=== PATIENT | female | born 1950 | race African-American/Black ===

== ENCOUNTER 2024-06-21 01:44 | Inpatient (IN) | payer OTHER, MEDICAID, MEDICARE ==
[~2024-06-21] VITALS: Ht 172.7 cm; Wt 54.9 kg
[2024-06-21] MEDS: LEVETIRACETAM 1000MG PREMIX 100 ML IV ONE (02:28)
[2024-06-21] MEDS ORDERED: IPRATROPIUM/ALBUTEROL 0.5-3(2.5)MG/3ML NEB HHN PRN (04:30)
[2024-06-21] MEDS ORDERED: ACETAMINOPHEN 325MG TABLET PO PRN (04:30)
[2024-06-21] MEDS ORDERED: ONDANSETRON HCL 4MG/2ML INJ IV PRN (04:30)
[2024-06-21] MEDS ORDERED: GUAIFENESIN 200MG/10ML SUGAR FREE UDC PO PRN (04:30)
[2024-06-21] MEDS ORDERED: MAGNESIUM/ALUMINUM HYDROXIDE/SIMETHICONE 30ML UDC PO PRN (04:30)
[2024-06-21] MEDS ORDERED: DEXTROSE 50% WATER 50ML SYRINGE IV PRN (04:30)
[2024-06-21] MEDS ORDERED: DOCUSATE SODIUM 100MG CAPSULE PO PRN (04:30)
[2024-06-21] MEDS ORDERED: CLONIDINE 0.1MG TABLET PO PRN (04:30)
[2024-06-21 04:59] LABS: BASOPHILS % 0.8 % (0.0-2.0); EOSINOPHILS % 1.3 % (0.0-5.0); HEMATOCRIT. 38.9 % (36.0-48.0); HEMOGLOBIN. 12.5 g/dL (12.0-16.0); LYMPHOCYTES % 26.6 % (20.0-50.0); MEAN CORPUSCULAR HEMOGLOBIN 30.2 pg (28.0-32.0); MEAN CORPUSCULAR VOLUME 94.3 fL (81.0-99.0); MEAN PLATELET VOLUME 7.7 fl (7.4-10.4); MONOCYTES % 5.3 % (2.0-8.0); PLATELET 379 x1000/uL (130-400); RED BLOOD CELL COUNT 4.13 mill/uL (4.2-5.4); RED CELL DISTRIBUTION WIDTH 13.4 % (11.6-14.6); WHITE BLOOD COUNT 13.9 x1000/uL (4.5-11.0)
[2024-06-21] MEDS ORDERED: LORAZEPAM 2MG/ML UD SYRINGE IV PRN (05:00)
[2024-06-21 05:19] LABS: CHLORIDE 110 mEq/L (98-107); POTASSIUM 3.3 mEq/L (3.5-5.1); SODIUM 149 mEq/L (136-145)
[2024-06-21 05:20] LABS: CALCIUM 10.5 mg/dL (8.7-10.4); CARBON DIOXIDE 19 mEq/L (21-32)
[2024-06-21 05:25] LABS: CREATININE 0.9 mg/dL (0.6-1.0); GLUCOSE 139 mg/dL (70-105); UREA NITROGEN BLOOD 10 mg/dL (9-23)
[2024-06-21] MEDS: MAGNESIUM 2 G PREMIX 50 ML IV NR (05:26)
[2024-06-21 05:27] LABS: CREATINE KINASE 100 IU/L (34-145); PHOSPHORUS 2.6 mg/dL (2.5-4.9)
[2024-06-21 05:29] LABS: THYROID STIMULATING HORMONE 2.65 uIU/mL (0.55-4.78)
[2024-06-21 06:50] VITALS: BP 148/66; PULSE 87; RESP 16; TEMP 36.5
[2024-06-21 07:00] VITALS: BP 148/66; PULSE 87; RESP 16; TEMP 36.5; O2SAT 100
[2024-06-21 08:00] VITALS: BP 149/85; PULSE 91; RESP 16; TEMP 36.8; O2SAT 97
[2024-06-21] MEDS: LEVETIRACETAM 1000MG PREMIX 100 ML IV SCH (08:38)
[2024-06-21] MEDS: PANTOPRAZOLE SODIUM 40 MG/VIAL IV SCH (08:38)
[2024-06-21] MEDS: LISINOPRIL 10MG TABLET PO SCH (08:55)
[2024-06-21] MEDS ORDERED: LEVETIRACETAM 1,000MG in NACL 100ML PREMIX IV SCH (09:00)
[2024-06-21] MEDS ORDERED: LEVETIRACETAM 500MG TABLET PO SCH (09:00)
[2024-06-21] MEDS: DEXTROSE 5% WATER 1,000 ML IV SCH (10:38)
[2024-06-21 12:00] VITALS: BP 148/66; PULSE 94; RESP 17; TEMP 36.7; O2SAT 99
[2024-06-21 16:00] VITALS: BP 149/84; PULSE 96; RESP 16; TEMP 36.8; O2SAT 98
[2024-06-21] MEDS ORDERED: HYDROCODONE/ACETAMINOPHEN 5/325MG TABLET PO PRN (16:30)
[2024-06-21] MEDS ORDERED: NALOXONE HCL 0.4MG/ML VIAL IV PRN (16:45)
[2024-06-21 20:00] VITALS: BP 140/80; PULSE 98; RESP 17; TEMP 37.1; O2SAT 100
[2024-06-21] MEDS: TRAZODONE HCL 50MG TABLET PO SCH (22:12)
[2024-06-21] MEDS: OXYBUTYNIN CHLORIDE 5MG TABLET PO SCH (22:12)
[2024-06-22] VITALS: BP 128/85; PULSE 90; RESP 18; TEMP 37.3; O2SAT 99
[2024-06-22 04:00] VITALS: BP 100/43; PULSE 93; RESP 18; TEMP 36.8; O2SAT 95
[2024-06-22 07:02] LABS: CARBON DIOXIDE 25 mEq/L (21-32); CHLORIDE 102 mEq/L (98-107); POTASSIUM 2.9 mEq/L (3.5-5.1); SODIUM 137 mEq/L (136-145)
[2024-06-22 07:08] LABS: CREATININE 0.7 mg/dL (0.6-1.0); GLUCOSE 137 mg/dL (70-105)
[2024-06-22 07:09] LABS: UREA NITROGEN BLOOD 8 mg/dL (9-23)
[2024-06-22 07:11] LABS: PHOSPHORUS 2.9 mg/dL (2.5-4.9)
[2024-06-22 08:00] VITALS: BP 113/50; PULSE 88; RESP 19; TEMP 36.7; O2SAT 100
[2024-06-22 10:13] LABS: EOSINOPHILS % 0.9 % (0.0-5.0); HEMATOCRIT. 35.7 % (36.0-48.0); HEMOGLOBIN. 12.4 g/dL (12.0-16.0); MEAN CORPUSCULAR HEMOGLOBIN 30.5 pg (28.0-32.0); MEAN CORPUSCULAR HGB CONC 34.6 g/dL (31.0-37.0); MEAN CORPUSCULAR VOLUME 88.2 fL (81.0-99.0); MEAN PLATELET VOLUME 7.7 fl (7.4-10.4); MONOCYTES % 6.3 % (2.0-8.0); NEUTROPHILS % 69.8 % (40.0-76.0); PLATELET 343 x1000/uL (130-400); RED BLOOD CELL COUNT 4.05 mill/uL (4.2-5.4); RED CELL DISTRIBUTION WIDTH 12.9 % (11.6-14.6); WHITE BLOOD COUNT 9.5 x1000/uL (4.5-11.0)
[2024-06-22] MEDS: POTASSIUM CHLORIDE 20MEQ TABLET SR PO SCH (10:29)
[2024-06-22 11:22] VITALS: BP 104/66; PULSE 88; TEMP 98.5; O2SAT 98
== END 2024-06-22 12:47 | disposition home or self-care (01) | DRG 101 ==
LOC: ER 01:44 → 5WST 03:54 → EDBEDREQSVC 05:40 → 5WST 21:00
PROVIDERS: ADMIT Internal Medicine; ATTEND Internal Medicine
DX: G40.909 Epilepsy, unspecified, not intractable, without status epilepticus (principal); F03.90 Unspecified dementia, unspecified severity, without behavioral disturbance, psychotic disturbance, mood disturbance, and anxiety; I10 Essential (primary) hypertension; E11.65 Type 2 diabetes mellitus with hyperglycemia; T42.6X6A Underdosing of other antiepileptic and sedative-hypnotic drugs, initial encounter; Y92.89 Other specified places as the place of occurrence of the external cause; Z79.899 Other long term (current) drug therapy; Z91.148 Patient's other noncompliance with medication regimen for other reason
CPT/HCPCS: 36415; 80048; 82550; 82693; 82962; 83735; 84100; 84439; 84443; 85025; 85379; 93005; 96365; 99285; J1953; J2470; J3475; J7070

== ENCOUNTER 2024-07-26 16:20 | Emergency (ER) | payer OTHER, MEDICAID ==
[~2024-07-26] VITALS: Ht 162.6 cm; Wt 68.0 kg
[2024-07-26 16:22] VITALS: O2SAT 96
[2024-07-26 16:58] LABS: BASOPHILS % 0.9 % (0.0-2.0); EOSINOPHILS % 4.5 % (0.0-5.0); HEMATOCRIT. 34.6 % (36.0-48.0); HEMOGLOBIN. 11.4 g/dL (12.0-16.0); LYMPHOCYTES % 30.9 % (20.0-50.0); MEAN CORPUSCULAR HEMOGLOBIN 30.9 pg (28.0-32.0); MEAN CORPUSCULAR VOLUME 93.6 fL (81.0-99.0); MEAN PLATELET VOLUME 6.8 fl (7.4-10.4); MONOCYTES % 5.8 % (2.0-8.0); NEUTROPHILS % 57.9 % (40.0-76.0); PLATELET 296 x1000/uL (130-400); RED BLOOD CELL COUNT 3.69 mill/uL (4.2-5.4); RED CELL DISTRIBUTION WIDTH 14.2 % (11.6-14.6); WHITE BLOOD COUNT 7.2 x1000/uL (4.5-11.0)
[2024-07-26 17:05] LABS: CHLORIDE 111 mEq/L (98-107); POTASSIUM 3.7 mEq/L (3.5-5.1); SODIUM 141 mEq/L (136-145)
[2024-07-26 17:06] LABS: CARBON DIOXIDE 16 mEq/L (21-32)
[2024-07-26 17:07] LABS: CALCIUM 9.3 mg/dL (8.7-10.4)
[2024-07-26 17:11] LABS: GLUCOSE 103 mg/dL (70-105)
[2024-07-26] MEDS: LEVETIRACETAM 500MG PREMIX 100 ML IV ONE (17:11)
[2024-07-26 17:12] LABS: ETHANOL BLOOD < 10 mg/dL (<10); UREA NITROGEN BLOOD 6 mg/dL (9-23)
[2024-07-26 18:11] VITALS: BP 165/59; PULSE 65; RESP 18; TEMP 36.4; O2SAT 99
== END 2024-07-26 18:43 | disposition home or self-care (01) ==
LOC: ER 16:20
DX: R56.9 Unspecified convulsions (principal); E11.9 Type 2 diabetes mellitus without complications; F03.90 Unspecified dementia, unspecified severity, without behavioral disturbance, psychotic disturbance, mood disturbance, and anxiety; I10 Essential (primary) hypertension
CPT/HCPCS: 80048; 80320; 85025; 36415; 96365; 99284; J1953; G0480

== ENCOUNTER 2024-11-30 06:42 | Emergency (ER) | payer MEDICAID ==
[~2024-11-30] VITALS: Ht 160 cm; Wt 77.0 kg
[2024-11-30 06:43] VITALS: O2SAT 96
[2024-11-30] MEDS: LEVETIRACETAM 1000MG PREMIX 100 ML IV ONE (07:02)
[2024-11-30 07:41] VITALS: BP 203/94; PULSE 99; RESP 23; TEMP 36.9; O2SAT 97
[2024-11-30 07:49] LABS: BASOPHILS % 1.3 % (0.0-2.0); EOSINOPHILS % 3.4 % (0.0-5.0); HEMATOCRIT. 34.6 % (36.0-48.0); HEMOGLOBIN. 11.7 g/dL (12.0-16.0); LYMPHOCYTES % 16.1 % (20.0-50.0); MEAN PLATELET VOLUME 7.1 fl (7.4-10.4); MONOCYTES % 5.2 % (2.0-8.0); NEUTROPHILS % 74.0 % (40.0-76.0); PLATELET 353 x1000/uL (130-400); RED BLOOD CELL COUNT 3.89 mill/uL (4.2-5.4); RED CELL DISTRIBUTION WIDTH 13.6 % (11.6-14.6)
[2024-11-30 08:10] LABS: CREATININE 0.7 mg/dL (0.6-1.0)
[2024-11-30 08:11] LABS: UREA NITROGEN BLOOD 11 mg/dL (9-23)
[2024-11-30 08:12] LABS: ASPARTATE AMINOTRANSFERASE 24 IU/L (<34)
[2024-11-30 08:13] LABS: BILIRUBIN DIRECT 0.1 mg/dL (<=3.0); BILIRUBIN TOTAL 0.4 mg/dL (0.1-1.0); PROTEIN TOTAL 7.0 g/dL (6.0-8.3)
== END 2024-11-30 08:52 | disposition left against medical advice (07) ==
LOC: ER 06:42
DX: G40.909 Epilepsy, unspecified, not intractable, without status epilepticus (principal); E11.9 Type 2 diabetes mellitus without complications; F10.20 Alcohol dependence, uncomplicated; I10 Essential (primary) hypertension; I46.9 Cardiac arrest, cause unspecified; Y90.9 Presence of alcohol in blood, level not specified
CPT/HCPCS: 80076; 80048; 80320; 85025; 36415; 93005; 96365; 99284; J1953; G0480

== ENCOUNTER 2024-12-20 05:17 | Emergency (ER) | payer MEDICAID ==
[~2024-12-20] VITALS: Ht 162.6 cm; Wt 64.0 kg
[2024-12-20 05:19] VITALS: O2SAT 98
[2024-12-20 06:00] LABS: BASOPHILS % 1.2 % (0.0-2.0); EOSINOPHILS % 4.5 % (0.0-5.0); HEMATOCRIT. 33.9 % (36.0-48.0); HEMOGLOBIN. 11.0 g/dL (12.0-16.0); LYMPHOCYTES % 26.9 % (20.0-50.0); MEAN PLATELET VOLUME 7.6 fl (7.4-10.4); MONOCYTES % 6.2 % (2.0-8.0); NEUTROPHILS % 61.2 % (40.0-76.0); PLATELET 281 x1000/uL (130-400); RED BLOOD CELL COUNT 3.77 mill/uL (4.2-5.4); RED CELL DISTRIBUTION WIDTH 13.8 % (11.6-14.6)
[2024-12-20] MEDS: LEVETIRACETAM 1000MG PREMIX 100 ML IV ONE (06:03)
[2024-12-20 06:27] LABS: CREATININE 0.8 mg/dL (0.6-1.0); UREA NITROGEN BLOOD 7 mg/dL (9-23)
[2024-12-20 06:56] LABS: ETHANOL BLOOD < 10 mg/dL (<10)
[2024-12-20 07:44] VITALS: BP 156/80; PULSE 85; RESP 18; TEMP 36.8; O2SAT 98
== END 2024-12-20 07:59 | disposition home or self-care (01) ==
LOC: ER 05:17 → CANBEDREQ 07:53 → ER 07:59
DX: G40.909 Epilepsy, unspecified, not intractable, without status epilepticus (principal); I10 Essential (primary) hypertension; F03.90 Unspecified dementia, unspecified severity, without behavioral disturbance, psychotic disturbance, mood disturbance, and anxiety; E11.9 Type 2 diabetes mellitus without complications
CPT/HCPCS: 80048; 80320; 85025; 36415; 96365; 99284; J1953; G0480

== ENCOUNTER 2025-01-23 12:46 | Emergency (ER) | payer BC, MEDICAID ==
[~2025-01-23] VITALS: Ht 170.2 cm; Wt 65.0 kg
[2025-01-23 12:51] VITALS: O2SAT 98
[2025-01-23] MEDS: LEVETIRACETAM 500MG PREMIX 100 ML IV ONE ×2 (13:23)
[2025-01-23 13:34] LABS: BASOPHILS % 0.5 % (0.0-2.0); EOSINOPHILS % 1.5 % (0.0-5.0); HEMATOCRIT. 33.4 % (36.0-48.0); HEMOGLOBIN. 11.4 g/dL (12.0-16.0); LYMPHOCYTES % 11.3 % (20.0-50.0); MEAN PLATELET VOLUME 7.0 fl (7.4-10.4); MONOCYTES % 3.4 % (2.0-8.0); NEUTROPHILS % 83.3 % (40.0-76.0); PLATELET 345 x1000/uL (130-400); RED BLOOD CELL COUNT 3.78 mill/uL (4.2-5.4); RED CELL DISTRIBUTION WIDTH 12.8 % (11.6-14.6)
[2025-01-23 13:41] LABS: CREATININE 0.8 mg/dL (0.6-1.0); UREA NITROGEN BLOOD 8 mg/dL (9-23)
[2025-01-23 13:42] LABS: PROTEIN TOTAL 6.9 g/dL (6.0-8.3)
[2025-01-23 13:43] LABS: ASPARTATE AMINOTRANSFERASE 16 IU/L (<34); BILIRUBIN TOTAL 0.3 mg/dL (0.1-1.0)
[2025-01-23 14:01] VITALS: BP 143/70; PULSE 93; RESP 14; TEMP 36.7; O2SAT 98
[2025-01-23] MEDS: POTASSIUM CHLORIDE 20MEQ/PACKET PO ONE (14:20)
== END 2025-01-23 16:39 | disposition home or self-care (01) ==
LOC: ER 14:18
DX: R56.9 Unspecified convulsions (principal); E87.6 Hypokalemia; E11.9 Type 2 diabetes mellitus without complications; I10 Essential (primary) hypertension; F03.90 Unspecified dementia, unspecified severity, without behavioral disturbance, psychotic disturbance, mood disturbance, and anxiety
CPT/HCPCS: 99291; 96365; 70450; 80053; 85025; 36415; J1953